=== PATIENT | male | born 1955 | race Caucasian/White ===

== ENCOUNTER → 2017-02-23 | Day surgery (SDC) | payer BC ==
[~2017-02-23] MED LIST: DIPRIVAN VIAL 20 ML ONE; NS 1000 ML 1,000 ML ONE
[2017-02-23 09:44] VITALS: BP 122/81
== END ==
LOC: EDBD 07:53 → SURG1 07:53
PROVIDERS: ATTEND Student in an Organized Health Care Education/Training Program
PROC: 0DBM8ZX Excision of Descending Colon, Via Natural or Artificial Opening Endoscopic, Diagnostic (ICD-10-PCS; principal; 2017-02-23 09:00)
PROC: 0DJD8ZZ Inspection of Lower Intestinal Tract, Via Natural or Artificial Opening Endoscopic (ICD-10-PCS; principal; 2017-02-23 09:00)
DX: Z12.11 Encounter for screening for malignant neoplasm of colon (principal); Z87.19 Personal history of other diseases of the digestive system; K64.0 First degree hemorrhoids; K62.4 Stenosis of anus and rectum; D12.4 Benign neoplasm of descending colon
CPT/HCPCS: A4217; J3490

== ENCOUNTER 2017-03-30 08:10 | Day surgery (SDC) | payer BC ==
[2017-03-30] MEDS ORDERED: NS 1000 ML 1,000 ML ONE (08:50)
[2017-03-30] MEDS ORDERED: ANCEF VIAL 1 GM ONE (08:51)
[2017-03-30] MEDS ORDERED: NS 100 ML IV 100 ML IV ONE (08:52)
[2017-03-30] MEDS ORDERED: NS 50 ML IV + SPIKE MINIBAG* 50 ML IV ONE ×2 (08:57→09:01)
[2017-03-30] MEDS ORDERED: DUONEB 0.5 MG/3 MG NEB ONE ×2 (09:08→11:58)
[2017-03-30 09:51] LABS: ALANINE AMINOTRANSFERASE 40 Units/L (12-78); ALBUMIN 3.5 g/dL (3.4-5.0); ALKALINE PHOSPHATASE 101 Units/L (46-116); ASPARTATE AMINO TRANSFERASE 21 Units/L (15-37); BASOPHILS # (AUTO) 0.1 X10^3/uL (0.0-0.1); BASOPHILS % (AUTO) 0.9 % (0.2-1.0); BLOOD UREA NITROGEN 14 mg/dL (7-18); CALCIUM 8.8 mg/dL (8.5-10.1); CARBON DIOXIDE 25.5 mmol/L (21-32); CHLORIDE 107 mmol/L (98-107); CREATININE 0.84 mg/dL (0.70-1.30); EOSINOPHILS # (AUTO) 0.2 x10^3/uL (0.0-0.2); EOSINOPHILS % (AUTO) 2.4 % (0.9-2.9); GLUCOSE 98 mg/dL (65-99); HEMATOCRIT 44.6 % (42.0-54.0); HEMOGLOBIN 15.6 g/dL (13.5-18.0); LYMPHOCYTES # (AUTO) 1.8 X10^3/uL (1.3-2.9); LYMPHOCYTES % (AUTO) 23.9 % (21.0-51.0); MEAN CORPUSCULAR HEMOGLOBIN 32.1 pg (27.0-34.0); MEAN CORPUSCULAR HGB CONC 34.9 g/dL (33.0-35.0); MEAN CORPUSCULAR VOLUME 92.1 fL (80.0-100.0); MEAN PLATELET VOLUME 7.6 fL (7.4-11.0); MONOCYTES # (AUTO) 0.5 x10^3/uL (0.3-0.8); MONOCYTES % (AUTO) 6.8 % (0.0-13.0); NEUTROPHILS # (AUTO) 4.9 x10^3/uL (2.2-4.8); PLATELET COUNT 216 X10^3/uL (150.0-450.0); RED BLOOD COUNT 4.84 X10^6/uL (4.7-6.0); RED CELL DISTRIBUTION WIDTH 13.7 % (11.6-16.5); SODIUM 138 mmol/L (136-145); TOTAL PROTEIN 7.2 g/dL (6.4-8.2); WHITE BLOOD COUNT 7.5 X10^3/uL (3.6-10.0); eGFR BLACK RACES > 60 (>60); eGFR NON BLACK RACES > 60 (>60)
[2017-03-30] MEDS ORDERED: SUPRANE IN ONE (09:53)
[2017-03-30] MEDS ORDERED: ZOFRAN INJ 4 MG VIAL ONE (09:53)
[2017-03-30] MEDS ORDERED: REGLAN INJ 10 MG VIAL ONE (09:53)
[2017-03-30] MEDS ORDERED: NEOSTIGMINE INJ ONE (09:53)
[2017-03-30] MEDS ORDERED: ROBINUL ONE (09:53)
[2017-03-30] MEDS ORDERED: VERSED ONE (09:53)
[2017-03-30] MEDS ORDERED: DIPRIVAN VIAL ONE (09:53)
[2017-03-30] MEDS ORDERED: NORCURON INJ 10 MG VIAL ONE (09:53)
[2017-03-30] MEDS ORDERED: QUELICIN (OR ANECTINE) ONE (09:53)
[2017-03-30] MEDS ORDERED: FENTANYL INJ 250 mcg ONE (10:44)
[2017-03-30] MEDS ORDERED: MARCAINE 0.25% WITH EPI IJ ONE (10:44)
[2017-03-30] MEDS ORDERED: XYLOCAINE 1 % (PLAIN) ONE (10:44)
[2017-03-30] MEDS ORDERED: HYDROGEN PEROXIDE 3% ONE (11:15)
[2017-03-30] MEDS ORDERED: REGLAN INJ 10 MG VIAL IVP PRN (11:55)
[2017-03-30] MEDS ORDERED: ZOFRAN INJ 4 MG VIAL IVP PRN (11:55)
[2017-03-30] MEDS ORDERED: DILAUDID INJ IVP PRN (11:55)
[2017-03-30] MEDS ORDERED: PHENERGAN INJ 25 MG IVP PRN (11:55)
[2017-03-30] MEDS ORDERED: BENADRYL INJ 50 MG VIAL IVP PRN (11:55)
[2017-03-30 13:39] VITALS: BP 163/81
== END 2017-03-30 13:40 | disposition home or self-care (01) ==
LOC: SURG1 08:10
PROVIDERS: ATTEND Student in an Organized Health Care Education/Training Program
PROC: 0D9Q70Z Drainage of Anus with Drainage Device, Via Natural or Artificial Opening (ICD-10-PCS; principal; 2017-03-30 09:45)
DX: K61.0 Anal abscess (principal); Z01.810 Encounter for preprocedural cardiovascular examination
CPT/HCPCS: 36415; 80053; 85025; 93005; 93010; 94640; A4216; A4222; S0020; J0330; J0690; J2001; J2250; J2405; J2710; J2765; J3010; J3490; J7620